=== PATIENT | female | born 1935 | race Caucasian/White ===

== ENCOUNTER 2016-04-22 19:44 | Emergency (ER) | payer MEDICARE, OTHER ==
[~2016-04-22] VITALS: Ht 167.6 cm; Wt 80.0 kg
[~2016-04-22 19:44] MED LIST: ARIC10TA PO; ASPI81 PO; ATOR10 PO; CLOP75 PO; FEXO60TA PO; LISI10TA PO; MEMA5 PO; METR-1 PO; OMEG1CAP53 PO; OYST500T77 PO; PROM25SU8 PO; TAB-TAB PO
[2016-04-22 19:46] VITALS: BP 145/87; PULSE 74; RESP 18; TEMP 98.2; O2SAT 95
--- NOTE | 2016-04-22 19:54 | PD ---
HPI Chief Complaint: Fall Time Seen by Provider: 19:50 Travel History International Travel<30 days: No Contact w/Intl Traveler<30days: No Traveled to known affect area: No History of Present Illness HPI 80-year-old female fpc patient with history of dementia, presents to the ER today brought in by EMS after she was found down on the ground by staff, it is unclear what happened and she is not able to tell us. She initially had complained of left hip pain but currently states she is fine. She denies any pain or other injuries. Modifying Factors: None Associated Signs & Symptoms: Fall, left hip pain Risk Factors: Demented, elderly PFSH Past Medical History Heart Rhythm Problems: Yes (SLOW HEARTRATE REQUIRING PACEMAKER) High Cholesterol: Yes Coronary Artery Disease: Yes Diabetes: No Diminished Hearing: No Hypertension: Yes Thyroid Disease: Yes Menopausal: Yes Past Surgical History Appendectomy: Yes Cholecystectomy: Yes Endocrine Surgery: Yes (THYROID REMOVED) Pacemaker: Yes Social History Alcohol Use: No Tobacco Use: No Substance Use: No Allergies-Medications (Allergen,Severity, Reaction): Coded Allergies: No Known Allergies (Verified , 04/22/16) Reported Meds & Prescriptions Reported Meds & Active Scripts Active Reported Temazepam 7.5 Mg Cap 7.5 Mg PO HS PRN Mapap (Acetaminophen) 325 Mg Tab 650 Mg PO TID Namenda (Memantine) 10 Mg Tab 10 Mg PO BID Vitamin D (Cholecalciferol) 400 Unit Tab 800 PO DAILY Lovaza (Vsxhp-3-Cbgf Ethyl Esters) 1 Gm Cap 1 Gm PO DAILY Lisinopril-Hctz 20-12.5 Mg Tab 1 Tab PO DAILY Leydi Allergy (Fexofenadine HCl) 60 Mg Tab 60 Mg PO DAILY Aspirin 81 Mg Chew 81 Mg CHEW DAILY Review of Systems ROS Limitations: Altered Mental Status (dementia, unreliable historian) Physical Exam Narrative GENERAL: Well-nourished, well-developed elderly white female patient who is awake, alert, not oriented, not in acute distress. SKIN: Warm and dry. HEAD: Normocephalic. EYES: No scleral icterus. No injection or drainage. NECK: Supple, trachea midline. CARDIOVASCULAR: Regular rate and rhythm without murmurs, gallops, or rubs. RESPIRATORY: Breath sounds equal bilaterally. No accessory muscle use. GASTROINTESTINAL: Abdomen soft, non-tender, nondistended. Pelvis: Stable, nontender palpation. MUSCULOSKELETAL: No cyanosis, or edema. BACK: Nontender without obvious deformity. No CVA tenderness. EXTREMITIES: No clubbing, cyanosis, or edema. No joint tenderness, effusion, or edema noted. No calf tenderness. Data Data Last Documented VS Vital Signs Date Time Temp Pulse Resp B/P Pulse Ox O2 Delivery O2 Flow Rate FiO2 04/22/16 19:46 98.2 74 18 145/[address] Brain W/O Iv Contrast(Rout) (04/22/16 19:51) Hip, Uni(Ap&Lat) W Ap Pelvis (04/22/16 19:51) Ct Hip W/O Contrast (04/22/16 ) MDM Medical Decision Making Medical Screen Exam Complete: Yes Emergency Medical Condition: Yes Medical Record Reviewed: Yes Interpretation(s) Last 24 hours Impressions Hip and Pelvis X-Ray 04/22/161950 Signed Impressions: Service Date/Time: Friday, April 22, 2016 20:15 - CONCLUSION: Mildly displaced fractures of the left superior and inferior pubic rami. Rafael Del Angel MD Head CT 04/22/161950 Signed Impressions: Service Date/Time: Friday, April 22, 2016 20:19 - CONCLUSION: No acute intracranial abnormality demonstrated. Rafael Del Angel MD Lower Extremity CT 04/22/16 0000 Signed Impressions: Service Date/Time: Friday, April 22, 2016 20:19 - CONCLUSION: Moderately comminuted, minimally displaced fractures of the left superior and inferior pubic rami with an adjacent anterolateral sidewall pelvic hematoma. Left hip joint proper is intact. Rafael Del Angel MD Differential Diagnosis Fall, left hip painrule out acute intracranial injuries versus hip fracture versus contusions Narrative Course X-rays and CAT scan shows a superior and inferior pubic rami fracture. No other fractures identified. Case was discussed with Dr. Reyes who states that this would be a nonoperative management. This is a stable fracture. At this point, my plan would be to release the patient back to facility with pain medication and nonweightbearing on that leg. Return for any worsening in pain or new issues as needed. Diagnosis Primary Impression: Pubic ramus fracture Referrals: Demetrius Reyes MD Med/Other Pt SpecificInfo: Prescription(s) given Scripts Hydrocodone-Acetaminophen (Lortab)5-325 Mg Tab1-2 Tab PO Q6H PRN (PAIN) #20 TAB Ref 0 Prov:Akua Kennedy MD 04/22/16 Disposition: 03 DISCHARGE TO SNF Condition: Stable Akua Kennedy MD Apr 22, 2016 19:54
[2016-04-22] MEDS ORDERED: TEMA7.5C PO (20:23)
[2016-04-22] MEDS ORDERED: MAPA325T PO (20:23)
[2016-04-22] MEDS ORDERED: LISI20TA PO (20:23)
[2016-04-22] MEDS ORDERED: NAME10TA PO (20:23)
[2016-04-22] MEDS ORDERED: ALLE60TA PO (20:23)
[2016-04-22] MEDS ORDERED: OMEG1CAP53 PO (20:23)
[2016-04-22] MEDS ORDERED: ASPI81CH CHEW (20:23)
[2016-04-22] MEDS ORDERED: VITA400T2 PO (20:23)
--- NOTE | 2016-04-22 20:26 | RADRPT ---
EXAM DATE/TIME: 04/22/2016 20:15 [facility] COMPARISON: No previous studies available for comparison. INDICATIONS : Pain in left hip, fall. MEDICAL HISTORY : None. SURGICAL HISTORY : None. ENCOUNTER: Initial ACUITY: 1 day PAIN SCORE: 5/10 LOCATION: Left hip FINDINGS: Mildly displaced fractures are seen of the left superior and inferior pubic rami, mid to distal porti ons. The acetabulum is not involved. The rest of the bony pelvis is intact. There are no subluxations . Mild to moderate bilateral hip osteoarthritis. Proximal left femur is intact. CONCLUSION: Mildly displaced fractures of the left superior and inferior pubic rami. Rafael Del Angel MD on April 22, 2016 at 20:23 Board Certified Radiologist. This report was verified electronically.
--- NOTE | 2016-04-22 20:30 | RADRPT ---
EXAM DATE/TIME: 04/22/2016 20:19 [facility] COMPARISON: No previous studies available for comparison. INDICATIONS : Found down today. RADIATION DOSE: 39.53 CTDIvol (mGy) MEDICAL HISTORY : Hypertension. SURGICAL HISTORY : Thyroidectomy. ENCOUNTER: Initial ACUITY: 1 day PAIN SCALE: 0/10 LOCATION: cranial TECHNIQUE: Multiple contiguous axial images were obtained of the head. Using automated exposure control and adj ustment of the mA and/or kV according to patient size, radiation dose was kept as low as reasonably a chievable to obtain optimal diagnostic quality images. FINDINGS: CEREBRUM: The ventricles are normal for age. No evidence of midline shift, mass lesion, hemorrhage or acute in farction. No extra-axial fluid collections are seen. POSTERIOR FOSSA: The cerebellum and brainstem are intact. The 4th ventricle is midline. The cerebellopontine angle i s unremarkable. EXTRACRANIAL: The visualized portion of the orbits is intact. SKULL: The calvaria is intact. No evidence of skull fracture. CONCLUSION: No acute intracranial abnormality demonstrated. Rafael Del Angel MD on April 22, 2016 at 20:28 Board Certified Radiologist. This report was verified electronically.
--- NOTE | 2016-04-22 20:41 | RADRPT ---
EXAM DATE/TIME: 04/22/2016 20:19 [facility] COMPARISON: No previous studies available for comparison. INDICATIONS : Found down today; left hip pain. RADIATION DOSE: 28.66 CTDIvol (mGy) MEDICAL HISTORY : Hypertension. SURGICAL HISTORY : Thyroidectomy. ENCOUNTER: Initial ACUITY: 1 day PAIN SCALE: 7/10 LOCATION: Left Hip TECHNIQUE: Volumetric scanning of the hip was performed. Using automated exposure control and adjustment of the mA and/or kV according to patient size, radiation dose was kept as low as reasonably achievable to o btain optimal diagnostic quality images. FINDINGS: Moderately comminuted but minimally displaced fractures involve the mid to distal portions of the lef t superior and inferior pubic rami. There is an adjacent hematoma in the left side of the pelvic cavi ty that measures approximately 5.5 x 9.1 x 7.5 cm in size. There is mass effect and rightward displac ement of the urinary bladder. Nothing to suggest bladder rupture. The acetabulum is intact. There is no subluxation of the left hip joint. Mild to moderate osteoarthri tis is noted. CONCLUSION: Moderately comminuted, minimally displaced fractures of the left superior and inferior pubic rami wit h an adjacent anterolateral sidewall pelvic hematoma. Left hip joint proper is intact. Rafael Del Angel MD on April 22, 2016 at 20:37 Board Certified Radiologist. This report was verified electronically.
[2016-04-22] MEDS ORDERED: HYDR-3533 PO (21:10)
[2016-04-22 21:49] VITALS: BP 141/65; PULSE 72; RESP 18; O2SAT 98
== END 2016-04-22 22:26 ==
LOC: NEPC 19:44
DX: S32.502A Unspecified fracture of left pubis, initial encounter for closed fracture (principal); F03.90 Unspecified dementia, unspecified severity, without behavioral disturbance, psychotic disturbance, mood disturbance, and anxiety; I25.10 Atherosclerotic heart disease of native coronary artery without angina pectoris; E78.00 Pure hypercholesterolemia, unspecified; I10 Essential (primary) hypertension; E07.9 Disorder of thyroid, unspecified; Z95.0 Presence of cardiac pacemaker; X58.XXXA Exposure to other specified factors, initial encounter; Y92.129 Unspecified place in nursing home as the place of occurrence of the external cause; Y99.8 Other external cause status
CPT/HCPCS: 70450; 73502; 73700